=== PATIENT | male | born 1985 | race Two or more races ===

== ENCOUNTER 2018-05-14 13:08 | Emergency (ER) | payer BC ==
[~2018-05-14] VITALS: Ht 170.2 cm; Wt 117.9 kg
--- NOTE | 2018-05-14 13:13 | NUR ---
Dr Barajas at the bedside for MSE.
[2018-05-14] MEDS ORDERED: ONDANSETRON 4 MG/2 ML VIAL IM ONE ×2 (13:15→14:15)
[2018-05-14] MEDS ORDERED: HYDROMORPHONE 1 MG/1 ML DISP.SYRIN IM ONE ×2 (13:15→14:15)
[2018-05-14] MEDS ORDERED: HYDROMORPHONE 2 MG/1 ML DISP.SYRIN ONE ×2 (13:19→14:14)
[2018-05-14] MEDS ORDERED: ONDANSETRON 4 MG/2 ML VIAL ONE ×2 (13:19→14:14)
--- NOTE | 2018-05-14 14:24 | NUR ---
Pt states feeling better. Pt's at the bedside.
[2018-05-14 14:48] VITALS: BP 131/78
--- NOTE | 2018-05-14 14:48 | NUR ---
IV removed. Catheter intact and site benign. Pressure and 4x4 gauze applied to site. No bleeding noted.
--- NOTE | 2018-05-14 14:48 | NUR ---
Patient discharged to home in stable conditon. Written and verbal after care instructions given. Patient verbalizes understanding of instructions.
== END 2018-05-14 14:49 | disposition home or self-care (01) ==
LOC: ER 13:08
DX: M54.41 Lumbago with sciatica, right side (principal)
CPT/HCPCS: 96372 ×4; 99283; J1170 ×2; J2405 ×2; A4663